=== PATIENT | male | born 1945 | race Caucasian/White ===

== ENCOUNTER 2016-03-29 11:38 | Emergency (ER) | payer MEDICARE, BC, OTHER ==
[~2016-03-29] VITALS: Ht 165.1 cm; Wt 122.0 kg
[~2016-03-29 11:38] MED LIST: CARV80 PO; COUM5TAB PO; DIGO0.12 PO; DILT60TA33 PO; FENO160T2 OR; FOLI200T OR; GLIM4TAB PO; LEVO.025 PO; LISI-363 PO; NIAC500T34 PO; SEA-1000 PO; SIMV20TA OR; VICTOZA INJ; VITA400C58 OR
[2016-03-29 11:53] VITALS: BP 141/62; PULSE 68; RESP 16; TEMP 98.5; O2SAT 98
[2016-03-29] MEDS ORDERED: CARV25TA PO (12:27)
[2016-03-29] MEDS ORDERED: VITA100064 PO (12:27)
[2016-03-29] MEDS ORDERED: SLO-500T PO (12:27)
[2016-03-29] MEDS ORDERED: NOVOLOGMXP SQ (12:27)
[2016-03-29] MEDS ORDERED: LISI2.5T3 PO (12:27)
[2016-03-29] MEDS ORDERED: FISH120014 PO (12:27)
[2016-03-29] MEDS ORDERED: L-THPOW PO (12:27)
[2016-03-29] MEDS ORDERED: GLIM4TAB PO (12:27)
[2016-03-29] MEDS ORDERED: ATOR1TAB18 PO (12:27)
[2016-03-29] MEDS ORDERED: NOVORP2 SQ (12:27)
[2016-03-29] MEDS ORDERED: FOLI400T PO (12:27)
[2016-03-29] MEDS ORDERED: FENO160T PO (12:27)
[2016-03-29] MEDS ORDERED: WARF-23 PO (12:27)
[2016-03-29] MEDS ORDERED: WARF-60 PO (12:27)
--- NOTE | 2016-03-29 12:57 | PD ---
HPI Chief Complaint: Pain: Acute or Chronic Time Seen by Provider: 12:32 Travel History International Travel<30 days: No Contact w/Intl Traveler<30days: No Traveled to known affect area: No History of Present Illness HPI He complains of right knee pain. It's been going on for one month. No acute injury. Located on the medial joint line. Denies fever. Symptoms of moderate severity. PFSH Past Medical History Hx Anticoagulant Therapy: Yes (coumadin) Atrial Fibrillation: Yes Heart Rhythm Problems: Yes Cardiovascular Problems: Yes (afib, htn ) High Cholesterol: Yes Diabetes: Yes (type 1) Patient Takes Glucophage: No Hypertension: Yes Myocardial Infarction: Yes (MILD) Past Surgical History Other Surgery: Yes (NASAL) Social History Alcohol Use: No Tobacco Use: No Substance Use: No Allergies-Medications (Allergen,Severity, Reaction): Coded Allergies: Shrimp (Verified Allergy, Severe, REDNESS, 03/29/16) Reported Meds & Prescriptions Reported Meds & Active Scripts Active Reported Novolog Mix 70/30 Inj (Insulin Aspart Prota 70%/Aspart 30%) 1,000 Units/10 Ml Inj 45 Units SQ BIDAC Novolin R Inj (Insulin Human Regular) 1,000 Unit/10 Ml Vial 10-15 Units SQ TIDAC PRN IMPORTANT TO EAT A MEAL WITHIN 30-60 MINUTES OF DOSING Folic Acid 400 Mcg Tab 400 Mcg PO DAILY Slo-Niacin (Niacin) 500 Mg Tab 500 Mg PO DAILY Vitamin D (Cholecalciferol) 1,000 Unit Tab 2,000 Units PO DAILY Fish Oil ([place]-3 Fatty Acids) 1,200 Mg Cap 4 Cap PO DAILY L-Thyroxine (Bulk) (Levothyroxine (Bulk)) Bulk Pow 175 Mcg PO DAILY Lisinopril 2.5 Mg Tab 2.5 Mg PO DAILY Glimepiride 4 Mg Tab 4 Mg PO BIDAC Carvedilol 25 Mg Tab 25 Mg PO BID Atorvastatin (Atorvastatin Calcium) 80 Mg Tab 80 Mg PO HS Warfarin 5 Mg Tab 5 Mg PO SUN,TUE,TUE,,SAT Warfarin 6 Mg Tab 6 Mg PO MON& FRI Fenofibrate 160 Mg Tab 200 Mg PO HS Review of Systems General / Constitutional: No: Fever HENT: No: Headaches Cardiovascular: No: Chest Pain or Discomfort Respiratory: No: Shortness of Breath Physical Exam Narrative SKIN: Inspection shows no rash or ulcers. Palpation shows no induration or nodules. Psych: Normal mood and affect. Normal insight and judgment. Right knee: No effusion or erythema or warmth. Good range of motion. There is medial joint line tenderness No bony deformity Data Data Last Documented VS Vital Signs Date Time Temp Pulse Resp B/P Pulse Ox O2 Delivery O2 Flow Rate FiO2 03/29/16 11:53 98.5 68 16 141/62 98 MDM Medical Decision Making Medical Screen Exam Complete: Yes Emergency Medical Condition: Yes Medical Record Reviewed: Yes Differential Diagnosis Arthritis, tendon or cartilage injury, effusion Narrative Course I have reviewed the patient's electronic medical record. Supportive care discussed. No indication for emergent studies. He's had one month of this No joint effusion, no sign of infection and not consistent with DVT Diagnosis Primary Impression: Pain in right knee Qualified Code: M25.561 - Chronic pain of right knee Additional Instructions: The patient was advised to follow up with their physician and return if they worsen. Med/Other Pt SpecificInfo: Other Disposition: 01 DISCHARGE HOME Condition: Stable Brian Guzman MD Mar 29, 2016 12:57
[2016-03-29 13:07] VITALS: BP 138/60; PULSE 66; RESP 18; O2SAT 98
== END 2016-03-29 13:08 | disposition home or self-care (01) ==
LOC: PHED 11:38
DX: M25.561 Pain in right knee (principal); I48.91 Unspecified atrial fibrillation; E10.9 Type 1 diabetes mellitus without complications; I10 Essential (primary) hypertension; E78.00 Pure hypercholesterolemia, unspecified; I25.2 Old myocardial infarction; Z79.4 Long term (current) use of insulin; Z79.01 Long term (current) use of anticoagulants; Z86.79 Personal history of other diseases of the circulatory system
CPT/HCPCS: 99283